=== PATIENT | female | born 1985 | race Caucasian/White ===

== ENCOUNTER → 2018-06-25 16:21 | Outpatient (CLI) | payer MEDICAID, SELFPAY | PROVIDERS: Family Provider Family Medicine; PCP Family Medicine; Visit Provider Otolaryngology Otolaryngology/Facial Plastic Surgery | DX: J32.9 Chronic sinusitis, unspecified (principal) | CPT/HCPCS: 87070; 87077; 87186; 87205 ==

== ENCOUNTER 2019-02-18 13:29 | Outpatient (CLI) | payer MEDICAID, SELFPAY ==
[2019-02-18 14:03] LABS: Protein:Creat Ratio 219 mg/g CRE (0-200)
[2019-02-18 14:15] VITALS: BMI 35.4
[2019-02-18 14:26] LABS: Hematocrit 34.9 % (37-47); Hemoglobin 11.4 g/dl (12.0-15.0); Mean Corp Hgb Conc 32.7 g/gl (32-36); Mean Corpuscular Hgb 29.7 pg (27.0-32.0); Mean Corpuscular Volume 90.9 fL (81-99); Mean Platelet Vol. 10.2 fl (6.2-12.0); Platelet Count 249 K/mm3 (150-450); RBC Distribution Width CV 12.1 % (11.6-14.6); RBC Distribution Width SD 39.2 fl (35.1-43.9); Red Blood Count 3.84 M/mm3 (4.2-5.4); White Blood Count 11.2 K/mm3 (4.4-11.0)
[2019-02-18 14:27] LABS: Scan Indicated on CBC? Y/N NO
[2019-02-18] MEDS: Betamethasone/Betamethasone 30 MG/5 ML Vial 12 MG IM (14:42)
[2019-02-18 14:48] LABS: AST(SGOT) 17 U/L (15-37); Alanine Aminotransfer ALT/SGPT 14 U/L (13-56); Creatinine, Serum 0.52 mg/dL (0.55-1.02); EST Glomerular Filtration Rate 146 mL/min (>60); Est Glom Filt Rate - Afr Amer 177 mL/min (>60); Estimated Creatinine Clearance 123.98 ml/min; Uric Acid 4.5 mg/dL (2.6-6.0)
[2019-02-18 15:11] VITALS: BP 132/80; PULSE 85; RESP 16; TEMP 36.7; O2SAT 98
[2019-02-19 17:05] LABS: 24HR. UA Prot. Total Volume 2775 mL; 24HR. Urine Creatinine 1.61 g/24 HR (0.70-1.90); Urine Protein (24 Hour) 11.1 mg/dL (<11.9)
[2019-02-19 17:06] LABS: Creat.Clear Total Volume 2775 mL; Creatinine Clearance 212 ml/min (100-200); Creatinine Serum Creat 0.5 mg/dL (0.6-1.0); Creatinine Urine 57.3 mg/dL (NO RANGE EST.); EST Glomerular Filtration Rate 145 mL/min (>60); Est Glom Filt Rate - Afr Amer 176 mL/min (>60)
--- NOTE | 2019-02-25 17:31 | OB.TRI.NOTE ---
History of Present Illness Date of Service: 02/18/19 Reason For Visit: R/O PIH Date of Service: 02/18/19 Final IDANIA: 03/23/19 Gestational age: 35 Weeks and 2 Days Allergies propoxyphene napsylate [From Darvocet-N 100] Allergy (Severe, Verified 02/22/19 13:19) Other blisters under skin cefuroxime axetil [From Ceftin] Allergy (Verified 02/22/19 13:19) Hives guevara flavor Allergy (Verified 02/22/19 13:19) Swelling codeine Allergy (Verified 02/22/19 13:19) Hives latex Allergy (Verified 02/22/19 13:19) Rash Sulfa (Sulfonamide Antibiotics) Adverse Reaction (Verified 02/22/19 13:20) Anaphylaxis - Pertinent Past Medical History Medical History: Past Medical History (Last Updated 02/19/19 @ 12:55 by Shannan Leal DO) AVM (arteriovenous malformation) Depression with anxiety History of gestational diabetes mellitus (GDM) History of pre-eclampsia in prior , currently OCD (obsessive compulsive disorder) Rheumatoid arthritis Surgical History: Past Surgical History (Last Updated 02/19/19 @ 12:55 by Shannan Leal DO) History of delivery Laboratory Studies: Laboratory Tests 02/19/19 02/19/19 02/19/19 Range/Units Unknown Unknown Unknown WBC (4.4-11.0) K/mm3 RBC (4.2-5.4) M/mm3 Hgb (12.0-15.0) g/dl Hct (37-47) % MCV (81-99) fL MCH (27.0-32.0) pg MCHC (32-36) g/gl RDW (11.6-14.6) % RDW Differential (35.1-43.9) fl Plt Count (150-450) K/mm3 MPV (6.2-12.0) fl PT (11.7-14.9) SECONDS INR APTT (24.1-36.2) Seconds Creatinine 0.5 L (0.55-1.02) mg/dL Estim Creat Clear Calc ml/min Est GFR (MDRD) Af Amer 176 (>60) mL/min Est GFR (MDRD) Non-Af 145 (>60) mL/min Uric Acid (2.6-6.0) mg/dL AST (15-37) U/L ALT (13-56) U/L U Random Total Protein (<11.9) mg/dL Urine Collection Time 24.0 24.0 (24.0) HOURS Ur Collection Duration 24.0 (24.0) HOURS Urine Total Volume 2.80 L Timed Urine Volume 2775 2775 mL Urine Creatinine 57.90 57.3 (NO RANGE EST.) mg/dL Ur Creatinine 24 Hour 1.61 (0.70-1.90) g/24 HR Creatinine Clearance 212 H (100-200) ml/min Ur Total Protein 24 Hr 308.0 H (<150 MG/24HR) mg/24HR Protein/Creatinin Ratio (0-200) mg/g CRE Urine Total Protein 11.1 (<11.9) mg/dL 02/18/19 02/18/19 02/18/19 Range/Units 14:10 14:10 14:10 WBC 11.2 H (4.4-11.0) K/mm3 RBC 3.84 L (4.2-5.4) M/mm3 Hgb 11.4 L (12.0-15.0) g/dl Hct 34.9 L (37-47) % MCV 90.9 (81-99) fL MCH 29.7 (27.0-32.0) pg MCHC 32.7 (32-36) g/gl RDW 12.1 (11.6-14.6) % RDW Differential 39.2 (35.1-43.9) fl Plt Count 249 (150-450) K/mm3 MPV 10.2 (6.2-12.0) fl PT 13.0 (11.7-14.9) SECONDS INR 1.0 APTT 26.0 (24.1-36.2) Seconds Creatinine 0.52 L (0.55-1.02) mg/dL Estim Creat Clear Calc 123.98 ml/min Est GFR (MDRD) Af Amer 177 (>60) mL/min Est GFR (MDRD) Non-Af 146 (>60) mL/min Uric Acid 4.5 (2.6-6.0) mg/dL AST 17 (15-37) U/L ALT 14 (13-56) U/L U Random Total Protein (<11.9) mg/dL Urine Collection Time (24.0) HOURS Ur Collection Duration (24.0) HOURS Urine Total Volume L Timed Urine Volume mL Urine Creatinine (NO RANGE EST.) mg/dL Ur Creatinine 24 Hour (0.70-1.90) g/24 HR Creatinine Clearance (100-200) ml/min Ur Total Protein 24 Hr (<150 MG/24HR) mg/24HR Protein/Creatinin Ratio (0-200) mg/g CRE Urine Total Protein (<11.9) mg/dL 02/18/19 Range/Units 13:40 WBC (4.4-11.0) K/mm3 RBC (4.2-5.4) M/mm3 Hgb (12.0-15.0) g/dl Hct (37-47) % MCV (81-99) fL MCH (27.0-32.0) pg MCHC (32-36) g/gl RDW (11.6-14.6) % RDW Differential (35.1-43.9) fl Plt Count (150-450) K/mm3 MPV (6.2-12.0) fl PT (11.7-14.9) SECONDS INR APTT (24.1-36.2) Seconds Creatinine (0.55-1.02) mg/dL Estim Creat Clear Calc ml/min Est GFR (MDRD) Af Amer (>60) mL/min Est GFR (MDRD) Non-Af (>60) mL/min Uric Acid (2.6-6.0) mg/dL AST (15-37) U/L ALT (13-56) U/L U Random Total Protein 25.0 H (<11.9) mg/dL Urine Collection Time (24.0) HOURS Ur Collection Duration (24.0) HOURS Urine Total Volume L Timed Urine Volume mL Urine Creatinine 114.00 (NO RANGE EST.) mg/dL Ur Creatinine 24 Hour (0.70-1.90) g/24 HR Creatinine Clearance (100-200) ml/min Ur Total Protein 24 Hr (<150 MG/24HR) mg/24HR Protein/Creatinin Ratio 219 H (0-200) mg/g CRE Urine Total Protein (<11.9) mg/dL Physical Exam Vitals: Vital Signs Temp Pulse Resp BP Pulse Ox 98.1 F 85 16 132/80 H 98 02/18/19 15:11 02/18/19 15:11 02/18/19 15:11 02/18/19 15:11 02/18/19 15:11 NST - FHR Rate Baby A Baseline: 125 Variability:: Moderate Accelerations:: 15 x 15 Decelerations:: Variable NST Reactive:: Yes Uterine Activity:: irritability Impression/Plan Reactive NST for gestational hypertension
== END 2019-02-18 15:15 | disposition home or self-care (01) ==
LOC: WPOUT 13:31 → OBT 13:32
PROVIDERS: Family Provider Family Medicine; PCP Family Medicine; Referring Provider Obstetrics & Gynecology; Visit Provider Obstetrics & Gynecology
DX: O13.3 Gestational [pregnancy-induced] hypertension without significant proteinuria, third trimester (principal); M06.9 Rheumatoid arthritis, unspecified; F60.5 Obsessive-compulsive personality disorder; Z86.32 Personal history of gestational diabetes; Z3A.35 35 weeks gestation of pregnancy
CPT/HCPCS: 59025; 59050; 82565; 82570; 82575; 84156; 84450; 84460; 84550; 85027; 85610; 85730; 99218; G0378; J0702

== ENCOUNTER 2019-02-19 09:00 | Outpatient (CLI) | payer MEDICAID, SELFPAY ==
[2019-02-18 14:15] VITALS: BMI 35.4
[2019-02-19 09:38] VITALS: BMI 37.5
[2019-02-19] MEDS: Acetaminophen 500 MG Tablet 1000 MG PO (10:22)
--- NOTE | 2019-02-19 12:56 | OB.TRI.HP_ITS ---
- Problem List (1) Elevated blood pressure affecting , antepartum Status: Acute (2) Headache in , antepartum Status: Acute History of Present Illness Date of Service: 02/19/19 Was patient seen by the physician?: Yes Reason For Visit: INCREASED BLOOD PRESSURE Date of Service: 02/19/19 Final IDANIA: 03/23/19 Gestational age: 35 Weeks and 3 Days History of Present Illness: Pt presents to L&D after having several mild range BP's at home: 150's/80's. She said she has had an off-and-on FORREST in the over the last several weeks. Had a frontal FORREST that is improved with Tylenol, and now dull and 2/10. No vision changes, RUQ pain, epigastric pain. She has been having nausea and vomiting throughout the , and no new or worsened N/V. Denies ctx, vb, lof. Good FM. Allergies propoxyphene napsylate [From Darvocet-N 100] Allergy (Severe, Verified 02/18/19 14:21) Other blisters under skin cefuroxime axetil [From Ceftin] Allergy (Verified 02/18/19 14:21) Hives guevara flavor Allergy (Verified 02/18/19 14:21) Swelling codeine Allergy (Verified 02/18/19 14:21) Hives latex Allergy (Verified 02/18/19 14:21) Rash - Pertinent Past Medical History Medical History: Past Medical History (Last Updated 02/19/19 @ 12:55 by Shannan Leal DO) AVM (arteriovenous malformation) Depression with anxiety History of gestational diabetes mellitus (GDM) History of pre-eclampsia in prior , currently OCD (obsessive compulsive disorder) Rheumatoid arthritis Surgical History: Past Surgical History (Last Updated 02/19/19 @ 12:55 by Shannan Leal DO) History of delivery Review of Systems Eyes: Denies: Blurred vision, Double vision, Vision Change HEENT: Reports: Head Aches Gastrointestinal: Denies: Abdominal Pain Physical Exam General: Alert, No apparent distress HEENT: Atraumatic Lungs: - - No increased resp effort Abdomen: Soft, Non Tender, Gravid Extremities:: No edema Neurological: Deep Tendon Reflexes 2+/4 and Symmetrical NST - FHR Rate Baby A Baseline: 130 Variability:: Moderate Accelerations:: 15 x 15 Decelerations:: None NST Reactive:: Yes Uterine Activity:: Irritability Impression/Plan 33 y/o at 35 wk gestation who presents from home after checking her BP and having several mild range BP's. She was evaluated yesterday for pre- eclampsia and had pre-e labs that were WNL. She was given 1 dose of BMZ and started a 24 hr urine protein collection. She was to come in today for a BP check and her second dose of BMZ. She reports she came to L&D after having several BP's in 150's/80's. She has had FORREST's off-and-on in the for several weeks, FORREST today that improved with Tylenol but did not completely resolve. No vision changes, RUQ pain, epigastric pain. Has had N/V throughout the . BP initially here was mild range - serial BP's over a few hours have all been normal. Will give 2nd dose of BMZ and have pt turn in 24 hr urine protein. Okay to go home. Will discuss pt with Dr. Escudero, and discuss having pt follow up in the office in 1-2 days. Discussed signs and symptoms of pre-e and when to call. Reviewed possibility of early delivery, and pt has her bags packed and everything ready at home for baby.
[2019-02-19] MEDS: Betamethasone/Betamethasone 30 MG/5 ML Vial 12 MG IM (13:55)
== END 2019-02-19 14:10 | disposition home or self-care (01) ==
LOC: WPOUT 09:04 → WP 09:05
PROVIDERS: Family Provider Family Medicine; PCP Family Medicine; Referring Provider Obstetrics & Gynecology; Visit Provider Obstetrics & Gynecology
DX: O26.893 Other specified pregnancy related conditions, third trimester (principal); R03.0 Elevated blood-pressure reading, without diagnosis of hypertension; R51 Headache; O21.2 Late vomiting of pregnancy; O99.343 Other mental disorders complicating pregnancy, third trimester; F60.5 Obsessive-compulsive personality disorder; F32.9 Major depressive disorder, single episode, unspecified; F41.9 Anxiety disorder, unspecified; Z86.32 Personal history of gestational diabetes; Z79.82 Long term (current) use of aspirin; Z79.899 Other long term (current) drug therapy; Z3A.35 35 weeks gestation of pregnancy
CPT/HCPCS: 59025; 59050; 96372; 99218; G0378; J0702

== ENCOUNTER → 2019-02-19 15:09 | Outpatient (CLI) | payer MEDICAID, SELFPAY ==
[2019-02-19 09:38] VITALS: BMI 37.5
== END ==
PROVIDERS: Family Provider Family Medicine; PCP Family Medicine; Referring Provider Obstetrics & Gynecology; Visit Provider Obstetrics & Gynecology
DX: Z00.00 Encounter for general adult medical examination without abnormal findings (principal)

== ENCOUNTER 2019-02-22 12:35 | Outpatient (CLI) | payer MEDICAID, SELFPAY ==
[2019-02-22 13:42] VITALS: BMI 35.4
[2019-02-22 14:07] LABS: Hematocrit 33.2 % (37-47); Hemoglobin 11.1 g/dl (12.0-15.0); Mean Corp Hgb Conc 33.4 g/gl (32-36); Mean Corpuscular Hgb 30.4 pg (27.0-32.0); Platelet Count 248 K/mm3 (150-450); RBC Distribution Width CV 12.5 % (11.6-14.6); RBC Distribution Width SD 41.3 fl (35.1-43.9); Red Blood Count 3.65 M/mm3 (4.2-5.4); White Blood Count 13.9 K/mm3 (4.4-11.0)
[2019-02-22 14:09] LABS: Scan Indicated on CBC? Y/N NO
[2019-02-22 14:14] LABS: Protein, Urine (Random) 10.3 mg/dL (<11.9); Protein:Creat Ratio 205 mg/g CRE (0-200)
[2019-02-22 14:16] LABS: Partial Thromboplast Time 24.2 Seconds (24.1-36.2)
[2019-02-22 14:17] LABS: AST(SGOT) 15 U/L (15-37); Alanine Aminotransfer ALT/SGPT 15 U/L (13-56); Creatinine, Serum 0.46 mg/dL (0.55-1.02); EST Glomerular Filtration Rate 166 mL/min (>60); Est Glom Filt Rate - Afr Amer 201 mL/min (>60); Estimated Creatinine Clearance 140.15 ml/min; Uric Acid 4.3 mg/dL (2.6-6.0)
--- NOTE | 2019-02-23 08:22 | OB.TRI.NOTE ---
History of Present Illness Date of Service: 02/22/19 Was patient seen by the physician?: No Reason For Visit: RULE OUT PRE E Date of Service: 02/22/19 Final IDANIA: 03/23/19 Final IDANIA Source: LMP Gestational age: 36 Weeks and 0 Days History of Present Illness: 33yo @ 35.6 wks elevated BP at home- here for PRE E work up. has h/o PRE E- planned cs on 03/04/19. Allergies propoxyphene napsylate [From Darvocet-N 100] Allergy (Severe, Verified 02/22/19 13:19) Other blisters under skin cefuroxime axetil [From Ceftin] Allergy (Verified 02/22/19 13:19) Hives guevara flavor Allergy (Verified 02/22/19:19) Swelling codeine Allergy (Verified 02/22/19 13:19) Hives latex Allergy (Verified 02/22/19 13:19) Rash Sulfa (Sulfonamide Antibiotics) Adverse Reaction (Verified 02/22/19 13:20) Anaphylaxis - Pertinent Past Medical History Medical History: Past Medical History (Last Updated 02/19/19 @ 12:55 by Shannan Leal DO) AVM (arteriovenous malformation) Depression with anxiety History of gestational diabetes mellitus (GDM) History of pre-eclampsia in prior , currently OCD (obsessive compulsive disorder) Rheumatoid arthritis Surgical History: Past Surgical History (Last Updated 02/19/19 @ 12:55 by Shannan Leal DO) History of delivery Laboratory Studies: Laboratory Tests 02/22/19 02/22/19 02/22/19 Range/Units 13:50 13:50 13:50 WBC (4.4-11.0) K/mm3 RBC (4.2-5.4) M/mm3 Hgb (12.0-15.0) g/dl Hct (37-47) % MCV (81-99) fL MCH (27.0-32.0) pg MCHC (32-36) g/gl RDW (11.6-14.6) % RDW Differential (35.1-43.9) fl Plt Count (150-450) K/mm3 MPV (6.2-12.0) fl PT 13.0 (11.7-14.9) SECONDS INR 1.0 APTT 24.2 (24.1-36.2) Seconds Creatinine 0.46 L (0.55-1.02) mg/dL Estim Creat Clear Calc 140.15 ml/min Est GFR (MDRD) Af Amer 201 (>60) mL/min Est GFR (MDRD) Non-Af 166 (>60) mL/min Uric Acid 4.3 (2.6-6.0) mg/dL AST 15 (15-37) U/L ALT 15 (13-56) U/L U Random Total Protein 10.3 (<11.9) mg/dL Urine Creatinine 50.30 (NO RANGE EST.) mg/dL Protein/Creatinin Ratio 205 H (0-200) mg/g CRE 02/22/19 Range/Units 13:50 WBC 13.9 H (4.4-11.0) K/mm3 RBC 3.65 L (4.2-5.4) M/mm3 Hgb 11.1 L (12.0-15.0) g/dl Hct 33.2 L (37-47) % MCV 91.0 (81-99) fL MCH 30.4 (27.0-32.0) pg MCHC 33.4 (32-36) g/gl RDW 12.5 (11.6-14.6) % RDW Differential 41.3 (35.1-43.9) fl Plt Count 248 (150-450) K/mm3 MPV 10.0 (6.2-12.0) fl PT (11.7-14.9) SECONDS INR APTT (24.1-36.2) Seconds Creatinine (0.55-1.02) mg/dL Estim Creat Clear Calc ml/min Est GFR (MDRD) Af Amer (>60) mL/min Est GFR (MDRD) Non-Af (>60) mL/min Uric Acid (2.6-6.0) mg/dL AST (15-37) U/L ALT (13-56) U/L U Random Total Protein (<11.9) mg/dL Urine Creatinine (NO RANGE EST.) mg/dL Protein/Creatinin Ratio (0-200) mg/g CRE NST - FHR Rate Baby A Baseline: 140 Variability:: Moderate Accelerations:: 15 x 15 Decelerations:: None NST Reactive:: Yes FHR Category:: Category I Uterine Activity:: none Impression/Plan 33yo @ 35.6 wks- Elevated BP at home 1) PRE E labs wnl 2) BPs normal range 3) RUQ discomfort - according to nursing no rebound, no guarding- non tender on deep palpation- Per nursing reflexes normal 4) Dc home with follow up this week with Dr. Escudero.
== END 2019-02-22 14:50 | disposition home or self-care (01) ==
LOC: WPOUT 12:44 → WP 13:33
PROVIDERS: Family Provider Family Medicine; PCP Family Medicine; Referring Provider Obstetrics & Gynecology; Visit Provider Obstetrics & Gynecology
DX: O14.03 Mild to moderate pre-eclampsia, third trimester (principal); Z79.82 Long term (current) use of aspirin; Z79.899 Other long term (current) drug therapy; Z86.32 Personal history of gestational diabetes; Z3A.36 36 weeks gestation of pregnancy
CPT/HCPCS: 59050; 82565; 82570; 84156; 84450; 84460; 84550; 85027; 85610; 85730; 99218; G0378

== ENCOUNTER 2019-03-04 10:00 | Inpatient (IN) | payer MEDICAID, SELFPAY ==
[2019-03-04] VITALS (22 sets, daily range): BP systolic 126–148; BP diastolic 67–104; PULSE 93–120; RESP 14–20; TEMP 36.2–36.9; O2SAT 97–100; BMI 35.4
--- NOTE | 2019-03-04 | FALS_PTH ---
PATIENT: AMRITA MICHAUD LOC: [facility] U#:[id number] AGE/SX: 33/F ROOM: WP004 RE03/04/[address]: Dr. Devin Escudero MD : [id number] BED: 1 DIS: 03/06/2019 SPEC #: [id number] RECD: 03/04/19 14:22 STATUS: VERA REGui #: [id number] UBALDO: 03/04/19 00:[address]: Devin Escudero DEPT: SURGICAL PATHOLOGY RECD BY: Amanda Mahoney ENTERED: 03/04/19 14:23 SP TYPE: FALL TUBES OTHR DR: Dr. Tao Patel MD Tissues: Fallopian tube Procedures: Surgery Specimen Level II HEADER OPERATION: Tubal ligation PRE-OP DIAGNOSIS: Tubal ligation TISSUE SUBMITTED: Fallopian tube MICROSCOPIC DIAGNOSIS Bilateral fallopian tubes, tubal ligation: Completely transected segments of bilateral fallopian tubes, no pathologic diagnosis. SJ:basil 03/05/19 MICROSCOPIC DESCRIPTION Slides are reviewed. GROSS DESCRIPTION Received is one container labeled with the patient's name and designated bilateral fallopian tubes, right with suture. The specimen consists of two tubular pieces of pink-carr soft tissue with the right identified with a suture. The right fallopian tube measures 1.5 cm in length and 0.5 cm in diameter and it is inked black. The left fallopian tube measures 0.7 cm in length and 0.5 cm in diameter. The entire specimen is submitted in one cassette. / MISTI:basil 03/04/19 TC:4 CPT: 72634 x2
[2019-03-04 10:42] LABS: Absolute Lymphocyte Count 2.11 X10^3/ul (0.83-4.51); Basophil# 0.02 X10^3/uL; Basophil% 0.2 % (0-1); Eosinophil# 0.38 X10^3/uL; Eosinophils% 3.6 % (0-5); Hematocrit 34.4 % (37-47); Hemoglobin 11.5 g/dl (12.0-15.0); Lymphocyte # 2.11 X10^3/ul (4.0); Mean Corp Hgb Conc 33.4 g/gl (32-36); Mean Corpuscular Hgb 30.2 pg (27.0-32.0); Mean Corpuscular Volume 90.3 fL (81-99); Mean Platelet Vol. 10.2 fl (6.2-12.0); Monocyte# 1.02 X10^3/uL; Monocyte% 9.7 % (0-10); Neutrophil # 7.02 X10^3/uL (2.7-7.7); Neutrophil % 66.4 % (47-70); Platelet Count 245 K/mm3 (150-450); RBC Distribution Width CV 12.6 % (11.6-14.6); RBC Distribution Width SD 41.2 fl (35.1-43.9); Red Blood Count 3.81 M/mm3 (4.2-5.4); White Blood Count 10.6 K/mm3 (4.4-11.0)
[2019-03-04 10:46] LABS: POSITIVE COUNT NO; POSITIVE DIFFERENTIAL NO; POSITIVE MORPHOLOGY NO
[2019-03-04] MEDS: Sodium Citrate/Citric Acid 30 ML UDC PO (11:45)
--- NOTE | 2019-03-04 11:59 | PCM.HP.OB ---
History Date of Admission: 03/04/19 Final IDANIA: 03/23/19 Final IDANIA Source: LMP Gestational age: 37 Weeks and 2 Days History of this : This is a 33 year-old, G [], P [], at 37 weeks gestational age. Medical History: Medical History (Last Updated 02/19/19 @ 12:55 by Shannan Leal DO) AVM (arteriovenous malformation) Q27.30 Depression with anxiety F41.8 History of gestational diabetes mellitus (GDM) Z86.32 History of pre-eclampsia in prior , currently O09.299 OCD (obsessive compulsive disorder) F42.9 Rheumatoid arthritis M06.9 Surgical History: Surgical History (Last Updated 02/19/19 @ 12:55 by Shannan Leal DO) History of delivery Z98.891 Allergies propoxyphene napsylate [From Darvocet-N 100] Allergy (Severe, Verified 03/04/19 10:14) Other blisters under skin cefuroxime axetil [From Ceftin] Allergy (Verified 03/04/19 10:14) Hives guevara flavor Allergy (Verified 03/04/19 10:14) Swelling codeine Allergy (Verified 03/04/19 10:14) Hives latex Allergy (Verified 03/04/19 10:14) Rash Sulfa (Sulfonamide Antibiotics) Adverse Reaction (Verified 03/04/19 10:14) Anaphylaxis Home Medications: Home Medications Vits [Prenatabs FA ] 1 tablet PO DAILY 12/05/13 Aspirin [Aspirin, Baby] 81 mg PO DAILY@0800 02/18/19 Citalopram [Celexa] 40 mg PO DAILY 02/18/19 Ferrous Gluconate 324 mg PO BID 02/18/19 Ondansetron HCl [Zofran] 4 mg PO DAILY 02/18/19 Smoking Status: Never smoker History Past Pregnancies: Past Pregnancies Delivery Date Name GA/Weeks Outcome Route Weight Gender Labor Length Anesthesia Delivery Location Provider FOB Labs: See [facility] H&P Physical Exam General: Alert, Oriented x3 Cardiovascular: Regular rate, Regular Rhythm Lungs: Normal air movement Abdomen: Soft, Non Tender, Non-Distended, Gravid Neurological: Cranial nerves II-XII grossly intact JUNIOR JAVA DEVELOPER: Normal external genitalia Estimated gestational size: Appropriate for gestational size Presentation: Cephalic Assessment/Plan All Active Problems (Last Updated 02/19/19 @ 12:55 by Shannan Leal DO) Elevated blood pressure affecting , antepartum (Acute) Headache in , antepartum (Acute) This is a 33 year-old female at 37&2 weeks gestational age. Admit to L&D Mild preeclampsia - no magnesium unless patient has severe range blood pressures or other features c/w severe preE MOD - repeat at 37&2 for mild preeclampsia Sterilization request - plan for bilateral tubal ligation, patient aware of risks of failure & regret Routine care
[2019-03-04] MEDS: Oxytocin 30 units/NS 500 ml 30 UNITS/500 ML IV.SOLN 167 UNITS IV (12:25)
[2019-03-04] MEDS: Ketorolac 30 MG/ML Syringe IV ×2 (12:35→18:25)
[2019-03-04] MEDS: Lactated Ringers 1,000 ML 100 ML IV (13:00)
--- NOTE | 2019-03-04 13:10 | PCM.OPRPT ---
Report of Operation Date of Procedure: 03/04/19 Pre-Operative Diagnosis: (1) Mild preeclampsia (2) Prior (3) Sterilization request Post-Operative Diagnosis: Same Surgery/Procedure Performed:: Low transverse section with bilateral tubal ligation Description of Surgical Findings:: Normal uterus & adnexa surgery manager: Yordan Jensen Specimen's removed: placenta Drains: fang Estimated Blood Loss (mL): 700ml Delivery Classification: Scheduled Final IDANIA: 03/23/19 Gestational age: 37 Weeks and 2 Days Indications for : Repeat Elective , Desires elective sterilization Description of Procedure: Patient taken to OR where she was prepped and draped in normal sterile fashion in a dorsal lithotomy position with a leftward tilt. After ensuring adequacy of anesthesia the Pfannensteil skin incision was made and carried through to the underlying fascia w/ a bovie. The fascia was incised in the midline and carried laterally with the Jon scissors. The rectus muscles were in the midline and the peritoneum was entered sharply. The bladder flap was dissected down with the Metzenbaum scissors and blunt dissection. The uterine incision was made with the scalpel and extended laterally w/ blunt dissection. The fetus was vertex and the head was brought to the incision in the flexed position. With good fundal pressure the head delivered easily. Shoulders & body delivered easily. The 3VC was clamped and cut after 1 minute delay and the handed off to waiting RN. The placenta was delivered w/ gentle traction and fundal massage and the uterus was exteriorized and cleared of all clots and debris. The uterine incision was closed with 1 vicryl suture in a running locked fashion. The right fallopian tube was then grasped, doubly suture ligated & tubal segment excised. This was repeated on the left fallopian tube. Excellent hemostasis of the tubal sites was confirmed. The uterus was returned to the peritoneal cavity. Pelvis was irrigated and cleared of all clots & debris. The uterine incision was reexamined and found to be hemostatic. The bladder peritoneum was also hemostatic. Some juliet was placed over the uterine incision due to the denuded areas. The tubal sutures were confirmed intact and hemostasis again confirmed. The fascia was closed with looped PDS suture in a running standard fashion. The subcutaneous tissue was examined, any bleeding bovie cauterized. The subcutaneous tissue was reapproximated with plain gut suture. The skin was closed in a subcuticular fashion by the CORE FILER with me present in the labor and delivery suite. I performed the remainder of the procedure w/ assistance. Amniotic Membrane Rupture Type: Artificial Amniotic Fluid Description: Clear Placenta Disposition: [facility] Drain: Fang to straight drain Fluids Replaced: 1500ml Cord Entanglement: None Cord Vessel Description: 3 Vessels Esitmated Blood Loss (ml): 700ml Infant Gender: Female (1 minute): 8 (5 minute): 9 Delayed cord clamping: Yes Pre-op Antibiotic Given: Clindamycin 600mg IV x1 and Gentamicin 1.5mg/kg IV x1
--- NOTE | 2019-03-04 13:14 | OP.PCM_ITS ---
Report of Operation Date of Procedure: 03/04/19 Pre-Operative Diagnosis: (1) Mild preeclampsia (2) Prior (3) Jamshid rilization request Post-Operative Diagnosis: Same Surgery/Procedure Performed:: Low transverse section with bilateral tubal ligation Description of Surgical Findings:: Normal uterus & adnexa assembly loader: Yordan Jensen Specimen's removed: placenta Drains: fang Estimated Blood Loss (mL): 700ml Delivery Classification: Scheduled Final IDANIA: 03/23/19 Gestational age: 37 Weeks and 2 Days Indications for : Repeat Elective , Desires elective sterilization Description of Procedure: Patient taken to OR where she was prepped and draped in normal sterile fashion in a dorsal lithotomy position with a leftward tilt. After ensuring adequacy of anesthesia the Pfannensteil skin incision was made and carried through to the underlying fascia w/ a bovie. The fascia was incised in the midline and carried laterally with the Jon scissors. The rectus muscles were in the midline and the peritoneum was entered sharply. The bladder flap was dissected down with the Metzenbaum scissors and blunt dissection. The uterine incision was made with the scalpel and extended laterally w/ blunt dissection. The fetus was vertex and the head was brought to the incision in the flexed position. With good fundal pressure the head delivered easily. Shoulders & body delivered easily. The 3VC was clamped and cut after 1 minute delay and the handed off to waiting RN. The placenta was delivered w/ gentle traction and fundal massage and the uterus was exteriorized and cleared of all clots and debris. The uterine incision was closed with 1 vicryl suture in a running locked fashion. The right fallopian tube was then grasped, doubly suture ligated & tubal segment excised. This was repeated on the left fallopian tube. Excellent hemostasis of the tubal sites was confirmed. The uterus was returned to the peritoneal cavity. Pelvis was irrigated and cleared of all clots & debris. The uterine incision was reexamined and found to be hemostatic. The bladder peritoneum was also hemostatic. Some juliet was placed over the uterine incision due to the denuded areas. The tubal sutures were confirmed intact and hemostasis again confirmed. The fascia was closed with looped PDS suture in a running standard fashion. The subcutaneous tissue was examined, any bleeding bovie cauterized. The subcutaneous tissue was reapproximated with plain gut suture. The skin was closed in a subcuticular fashion by the SHIPPING TECHNICIAN with me present in the labor and delivery suite. I performed the remainder of the procedure w/ assistance. Amniotic Membrane Rupture Type: Artificial Amniotic Fluid Description: Clear Placenta Disposition: [facility] Drain: Fang to straight drain Fluids Replaced: 1500ml Cord Entanglement: None Cord Vessel Description: 3 Vessels Esitmated Blood Loss (ml): 700ml Gender: Female (1 minute): 8 (5 minute): 9 Delayed cord clamping: Yes Pre-op Antibiotic Given: Clindamycin 600mg IV x1 and Gentamicin 1.5mg/kg IV x1
[2019-03-04 13:52] LABS: Pathology Specimen OB SEE PATHOLOGY REPORT
[2019-03-04 17:42] LABS: Protein, Urine (Random) 23.5 mg/dL (<11.9); Protein:Creat Ratio 1193 mg/g CRE (0-200)
[2019-03-04 17:44] LABS: Hematocrit 29.9 % (37-47); Mean Corp Hgb Conc 33.4 g/gl (32-36); Mean Corpuscular Hgb 30.3 pg (27.0-32.0); Mean Corpuscular Volume 90.6 fL (81-99); Mean Platelet Vol. 10.2 fl (6.2-12.0); Platelet Count 232 K/mm3 (150-450); RBC Distribution Width CV 12.5 % (11.6-14.6); RBC Distribution Width SD 41.1 fl (35.1-43.9); Scan Indicated on CBC? Y/N NO; White Blood Count 15.4 K/mm3 (4.4-11.0)
[2019-03-04 17:49] LABS: Prothrombin Time (Protime)PT. 13.4 SECONDS (11.7-14.9)
[2019-03-04 17:50] LABS: Partial Thromboplast Time 26.9 Seconds (24.1-36.2)
[2019-03-04 18:15] LABS: AST(SGOT) 26 U/L (15-37); Alanine Aminotransfer ALT/SGPT 27 U/L (13-56); Creatinine, Serum 0.41 mg/dL (0.55-1.02); EST Glomerular Filtration Rate 193 mL/min (>60); Est Glom Filt Rate - Afr Amer 233 mL/min (>60); Estimated Creatinine Clearance 157.24 ml/min; Uric Acid 4.7 mg/dL (2.6-6.0)
[2019-03-04] MEDS: Nalbuphine 10 MG/ML Ampul 5 MG IV (18:26)
[2019-03-04] MEDS: DiphenhydrAMINE 25 MG Capsule PO (23:14)
[2019-03-04] MEDS: Ibuprofen 600 MG Tablet PO (23:25)
[2019-03-05] VITALS (13 sets, daily range): BP systolic 121–135; BP diastolic 65–76; PULSE 78–98; RESP 16–18; TEMP 36.1–36.7; O2SAT 97–99
--- NOTE | 2019-03-05 01:04 | NURSING ---
Late entry: 0045 pad changed and thomas care done. Pt up and sat on side of bed, dangling legs. Pt then stood at bedside, then back into bed. Pt tolerated this activity well.
[2019-03-05 04:34] LABS: Hematocrit 28.5 % (37-47); Hemoglobin 9.6 g/dl (12.0-15.0); Mean Corp Hgb Conc 33.7 g/gl (32-36); Mean Corpuscular Hgb 30.7 pg (27.0-32.0); Mean Corpuscular Volume 91.1 fL (81-99); Platelet Count 203 K/mm3 (150-450); RBC Distribution Width CV 12.7 % (11.6-14.6); RBC Distribution Width SD 41.8 fl (35.1-43.9); Red Blood Count 3.13 M/mm3 (4.2-5.4); Scan Indicated on CBC? Y/N NO; White Blood Count 13.5 K/mm3 (4.4-11.0)
[2019-03-05] MEDS: DiphenhydrAMINE 25 MG Capsule PO (05:57)
[2019-03-05] MEDS: Ibuprofen 600 MG Tablet PO ×3 (06:00→20:59)
--- NOTE | 2019-03-05 08:51 | PN.OBGYN_ITS ---
Subjective: Pain well controlled, average lochia. No nausea or vomiting. Tolerating regular diet and p.o. fluids. - Physical Exam General: Alert, Cooperative, No apparent distress Abdomen: Soft, Distended - Mildly, softly, Tender - Appropriately Extremities: Edema - 1+, - - 2+ DTRs, no clonus Skin: Incision - Clean dry and intact bandage. Vital Signs Temp Pulse Resp BP Pulse Ox 98.0 F 83 18 121/65 H 97 03/05/19 08:27 03/05/19 08:27 03/05/19 08:27 03/05/19 08:27 03/05/19 08:27 Oxygen Delivery Method Room Air Weight: 87.997 kg Body Mass Index (BMI) 35.4 Intake and Output for Last 24 Hours 03/03/19 03/04/19 03/05/19 23:59 23:59 23:59 Intake Total 1500 / 1500 1978 Output Total 3000 / 3000 2700 / 2700 Balance -1500 / -1500 -721 / -721 Laboratory Tests Past 24 Hrs 03/04/19 03/04/19 03/04/19 10:20 10:20 17:15 WBC 10.6 15.4 H RBC 3.81 L 3.30 L Hgb 11.5 L 10.0 L Hct 34.4 L 29.9 L MCV 90.3 90.6 MCH 30.2 30.3 MCHC 33.4 33.4 RDW 12.6 12.5 RDW Differential 41.2 41.1 Plt Count 245 232 MPV 10.2 10.2 Immature Gran % (Auto) 0.100 Neut % (Auto) 66.4 Lymph % (Auto) 20.0 [place] % (Auto) 9.7 Eos % (Auto) 3.6 Baso % (Auto) 0.2 Absolute Neuts (auto) 7.0 Absolute Lymphs (auto) 2.11 Total Counted Not Reportable PT INR APTT Creatinine Estim Creat Clear Calc Est GFR (MDRD) Af Amer Est GFR (MDRD) Non-Af Uric Acid AST ALT U Random Total Protein Urine Creatinine Protein/Creatinin Ratio Blood Type A POSITIVE Antibody Screen NEGATIVE 03/04/19 03/04/19 03/04/19 17:15 17:15 17:15 WBC RBC Hgb Hct MCV MCH MCHC RDW RDW Differential Plt Count MPV Immature Gran % (Auto) Neut % (Auto) Lymph % (Auto) [place] % (Auto) Eos % (Auto) Baso % (Auto) Absolute Neuts (auto) Absolute Lymphs (auto) Total Counted PT 13.4 INR 1.0 APTT 26.9 Creatinine 0.41 L Estim Creat Clear Calc 157.24 Est GFR (MDRD) Af Amer 233 Est GFR (MDRD) Non-Af 193 Uric Acid 4.7 AST 26 ALT 27 U Random Total Protein 23.5 H Urine Creatinine 19.70 Protein/Creatinin Ratio 1193 H Blood Type Antibody Screen 03/05/19 04:15 WBC 13.5 H RBC 3.13 L Hgb 9.6 L Hct 28.5 L MCV 91.1 MCH 30.7 MCHC 33.7 RDW 12.7 RDW Differential 41.8 Plt Count 203 MPV 10.0 Immature Gran % (Auto) Neut % (Auto) Lymph % (Auto) [place] % (Auto) Eos % (Auto) Baso % (Auto) Absolute Neuts (auto) Absolute Lymphs (auto) Total Counted PT INR APTT Creatinine Estim Creat Clear Calc Est GFR (MDRD) Af Amer Est GFR (MDRD) Non-Af Uric Acid AST ALT U Random Total Protein Urine Creatinine Protein/Creatinin Ratio Blood Type Antibody Screen Medical Necessity - Tobacco Use Smoking Status: Never smoker Assessment/Plan All Active Problems (Last Updated 02/19/19 @ 12:55 by Shannan Leal DO) Elevated blood pressure affecting , antepartum (Acute) Headache in , antepartum (Acute) Postoperative day #1 status post repeat section at 37 weeks gestation with mild preeclampsia. Blood pressures are stable. Hemoglobin shows mild acute blood loss anemia which is appropriate for blood loss during surgery. We will continue to monitor blood pressures. No evidence of severe preeclampsia. DC Sharpe catheter, increase ambulation. is breast-feeding and doing well. Routine care.
--- NOTE | 2019-03-05 15:16 | CASEMGMT ---
Social Work Labor and Delivery Attempted to meet with patient at 1415 and 1500. Patient wanted to feed at 1415 and asked social work to return at 1500. At 1500, patient was working with and asked for social work to return in the morning. -Rissa Silva, HIGH RISK OB Student Devulcanizer Tender.
[2019-03-06 01:45] VITALS: BP 122/73; PULSE 74; RESP 16; TEMP 36.2
[2019-03-06] MEDS: Ibuprofen 600 MG Tablet PO ×2 (05:18→11:32)
[2019-03-06 08:14] VITALS: BP 143/80; PULSE 72; RESP 18; TEMP 36.3; O2SAT 95
[2019-03-06 08:39] VITALS: BP 148/76; PULSE 72; RESP 16; TEMP 36.3; O2SAT 95
--- NOTE | 2019-03-06 09:42 | PCM.PN.OB ---
Subjective: pain well controlled, average lochia. Denies FORREST, visual changes, CP, SOB. + flatus, no BM. roberta. regular diet - Physical Exam General: Alert, Cooperative, No apparent distress Abdomen: Soft, Non-Distended, Tender - appropriately Extremities: Edema - trace, 2+ DTrs, no clonus Skin: Incision - bandage clean, dry and intact Vital Signs Temp Pulse Resp BP Pulse Ox 97.4 F L 72 16 148/76 H 95 03/06/19 08:39 03/06/19 08:39 03/06/19 08:39 03/06/19 08:39 03/06/19 08:39 Oxygen Delivery Method Room Air Weight: 87.997 kg Body Mass Index (BMI) 35.4 Intake and Output for Last 24 Hours 03/04/19 03/05/19 03/06/19 23:59 23:59 23:59 Intake Total 1500 / 1500 1978 Output Total 3000 / 3000 6700 / 6700 500 / 500 Balance -1500 / -1500 -4721 / -4721 -500 / -500 Medical Necessity - Tobacco Use Smoking Status: Never smoker Assessment/Plan All Active Problems (Last Updated 02/19/19 @ 12:55 by Shannan Leal DO) Elevated blood pressure affecting , antepartum (Acute) Headache in , antepartum (Acute) POD#2 s/p repeat c/s doing well bp stable f/u in office in 1 week for BP check or prn declines Rx for narcotics
--- NOTE | 2019-03-06 09:54 | DCINST_ITS ---
Discharge Diet: No Restrictions - remove bandage on 03/09 or 03/10/19 Discharge Activity: Return to Normal Activity, May Not Drive - for 2 weeks, May not drive while taking narcotic pain medications., May Shower, May Take a Tub Bath - in 7 days. May resume sexual activity in: 4-6 weeks Lifting Restrictions: 20 pounds Additional Activity Instructions:: Nothing in the vagina for 4-6 weeks. You may return to work/school in 6 weeks. Call your doctor if your incision/area has: Continuous Slow Oozing, Sudden Increased Bleeding, Increased Pain/ Swelling, Increased Redness, Foul Smelling Discharge Call your doctor if you observe: Fever of 101 or Higher, Using more than one pad per hour - for 2 hours Suture Line Care: Avoid Pulling/Pushing, Avoid Pinching/Bending Cleanse incision/area with: Keep Dressing Clean & Dry Additional Instructions: If you experience any of the following, contact your healthcare provider. * Bleeding that soaks a pad every hour for 2 hours * Fever 100.4 or higher * Unrelieved incision or abdominal pain * Swelling, redness, discharge or bleeding from your incision or episiotomy site * Your incision begins to separate * Problems urinating (including inability to urinate or burning while urinating). * Visual changes * Severe headache * Flu-like symptoms * Pain or redness in one of both of your breasts * Pain, warmth, tenderness or swelling in your legs, especially the calf area * Frequent nausea and vomiting * Symptoms of depression or anxiety If you experience any of the following, call 911 or go to the nearest Emergency Room. * Chest pain * Problems breathing * Seizure activity * Partial or complete paralysis of a body part, slurred speech, weakness or drooping of the face, or a sudden inability to walk or hold your balance Allergies/Adverse Reactions: Allergies propoxyphene napsylate [From Darvocet-N 100] Allergy (Severe, Verified 03/04/19 10:14) Other blisters under skin cefuroxime axetil [From Ceftin] Allergy (Verified 03/04/19 10:14) Hives guevara flavor Allergy (Verified 03/04/19 10:14) Swelling codeine Allergy (Verified 03/04/19 10:14) Hives latex Allergy (Verified 03/04/19 10:14) Rash Sulfa (Sulfonamide Antibiotics) Adverse Reaction (Verified 03/04/19 10:14) Anaphylaxis Medications to take at Discharge Vits [Prenatabs FA ] 1 tablet PO DAILY 12/05/13 Citalopram [Celexa] 40 mg PO DAILY 02/18/19 Ferrous Gluconate 324 mg PO BID 02/18/19 Ibuprofen [Motrin] 600 mg PO Q6H PRN #60 tablet 03/06/19 The following prescriptions were given: Ibuprofen [Motrin] 600 mg PO Q6H PRN #60 tablet PRN Reason: Pain Follow-Up: Call to make an appointment with your doctor for an incision check in 1-2 weeks. You will also need a 6 week post- follow up appointment. Test results from this visit will be discussed in further detail at your follow- up appointment, if applicable. Please Follow Up With: Devin Escudero - Call to make an appointment for an incision check in 1 [phone] When: You will need a post check in 6 weeks. Primary Care Physician: Tao Patel MD [Primary Care Provider] -
--- NOTE | 2019-03-06 09:55 | PCM.DC.SUM ---
Discharge Date and Diagnosis Date of Admission: 03/04/19 Date of Discharge: 03/06/19 Hospital Course and Treatment Operations: - - Repeat low transverse section via Pfannenstiel skin incision with bilateral partial salpingectomy for sterilization Procedures: None Summary of Care Provided: The patient is a 33 year old female was admitted at 37+ weeks gestation for repeat section due to mild preeclampsia. She also went a bilateral partial salpingectomy for sterilization. Procedures performed without difficulty. Her blood pressures are stable after the . She had mild postoperative anemia consistent with blood loss from the surgery. She had no symptoms or laboratory studies consistent with preeclampsia with severe features. By postoperative 2 she is ambling, urinating tolerating regular diet without difficulty. She was discharged home with routine instructions and prescriptions. She declined a narcotic prescription. She is to follow-up in our office in 1-2 in 6 weeks or as needed if any symptoms of preeclampsia. [] - Physical Exam Vital Signs Temp Pulse Resp BP Pulse Ox 97.4 F L 72 16 148/76 H 95 03/06/19 08:39 03/06/19 08:39 03/06/19 08:39 03/06/19 08:39 03/06/19 08:39 Oxygen Delivery Method Room Air Weight: 87.997 kg Body Mass Index (BMI) 35.4 Intake and Output for Last 24 Hours 03/04/19 03/05/19 03/06/19 23:59 23:59 23:59 Intake Total 1500 / 1500 1978 Output Total 3000 / 3000 6700 / 6700 500 / 500 Balance -1500 / -1500 -4721 / -4721 -500 / -500 Discharge Diet: No Restrictions - remove bandage on 03/09 or 03/10/19 Discharge Activity: Return to Normal Activity, May Not Drive - for 2 weeks, May not drive while taking narcotic pain medications., May Shower, May Take a Tub Bath - in 7 days. May resume sexual activity in: 4-6 weeks Additional Activity Instructions:: Nothing in the vagina for 4-6 weeks. You may return to work/school in 6 weeks. Call your doctor if your incision/area has: Continuous Slow Oozing, Sudden Increased Bleeding, Increased Pain/ Swelling, Increased Redness, Foul Smelling Discharge Call your doctor if you observe: Fever of 101 or Higher, Using more than one pad per hour - for 2 hours Suture Line Care: Avoid Pulling/Pushing, Avoid Pinching/Bending Cleanse incision/area with: Keep Dressing Clean & Dry Home Medications: Medications to take at Discharge Vits [Prenatabs FA ] 1 tablet PO DAILY 12/05/13 Citalopram [Celexa] 40 mg PO DAILY 02/18/19 Ferrous Gluconate 324 mg PO BID 02/18/19 Ibuprofen [Motrin] 600 mg PO Q6H PRN #60 tablet 03/06/19 Following Prescrptions Were Given to Patient: Ibuprofen [Motrin] 600 mg PO Q6H PRN #60 tablet PRN Reason: Pain Primary Care Physician: Tao Patel MD [Primary Care Provider] - Please Follow Up With: Devin Escudero - Call to make an appointment for an incision check in 1 [phone] When: You will need a post check in 6 weeks. Medical Necessity - Tobacco Use Smoking Status: Never smoker Meaningful Use Info Meaningful Use Diagnoses (Choose all that apply): None applicable
--- NOTE | 2019-03-06 10:11 | NURSING ---
reviewed student's documentation for completion
--- NOTE | 2019-03-06 11:34 | CASEMGMT ---
Social Work Labor and Delivery Date of Referral: 03/05/19 Time of Referral: 0800 Referred by: Dr Escudero/Dr Grimaldo Date of Intervention: 03/06/19 Time of Intervention: 0900 Reason for referral: mental health, history of anxiety and depression History obtained from: medical record, mother of the baby(MOB) Sharon Ross Household composition: MOB lives with Shane Ross father of the baby (LYDIA) and their 5 year old daughter Marci. MOB declines any safety concerns within the home. Patient's parent guardian status: MOB and FOB have been together since middle school and for 8 years. MOB and FOB do not have any children outside their relationship. MOB denies any history of domestic violence. Medical History: MOB is to 2 after of baby Anh. MOB began PNC at 7 weeks. Anh was born on 03/04/19 at 6lbs and 13oz with scores of 8 and 9. Educational status: MOB reports to have a bachelors degree. MOB confirmed to be able to read, write, and comprehend. Financial Status: MOB works for [employer] that is owned by MOB's parents. FOYasir works for [employer]. Supplies: MOB reports to have car seat, crib, pack and play, clothing, diapers, wipes, and a breast pump. Childcare/givers: MOB and FOB will be primary childcare givers. MOB and FOB reported that both sets of their parents are supplemental caregivers. Transportation: MOB and FOB denied any issues with transportation as they both drive Programs/agencies involved: MOB an FOB are not connected with any agencies. MOB was connected with [facility] in the past when MOB stopped . MOB declined [facility] referral. Children Services/Legal Issues: MOB and FOB declined any history with children services or legal issues. Behavioral Health Issues: Mental Health History: JELANI has been diagnosed with depression, anxiety, and OCD. MOB reported to have experienced baby blues during short time period after delivery with previous of Marci. MOB does not attend counseling but has been prescribed Celexa as treatment for diagnoses. MOB denies any history or current suicidal ideations. Substance Use History: MOB denies any history of substance use. Family History: MOB did not identify any family history of concern. Drug Screens: MOB tested negative at PNC visit on 08/09/18. Family/Social Stressors: MOB and FOB spoke about history of marital counseling and identified as previous stressor but have since been working on positive communication. Support Systems: MOB and FOB identified their methodist, friends, and entire family, specifically parents on both sides, to be supports. ASSESSMENT: MOB and FOB were in room with baby Anh. FOB was doing skin to skin with Anh. FOB and MOB answered all questions appropriately. MOB and FOB provided accurate precautionary information for shaken baby syndrome and safe sleeping. PPD signs and symptoms reviewed with MOB and FOB with their understanding. FOB left room so MOB could speak privately. MOB reported that first was more anxiety provoking as MOB experienced pre eclampsia for the entire duration of the . MOB spoke about diagnoses to be controlled and not interfering with function. MOB has been prescribed Celexa as treatment and reports to be doing well. MOB does not attend counseling but did disclose that would attend counseling if necessary. MOB spoke about baby blues to be a lot of crying for unknown reasons and that FOB was supportive. MOB reported that baby blues passed shortly after returning home and finding a routine. MOB and FOB both caring and handling for the baby very well. PLAN: MOB to home with baby. [facility] resource packet provided. WIC/HMG/PPD packet provided. No other services indicated or requested at this time. -Rissa Silva, HOOP MAKER HELPER MACHINE Student [employer] [facility].
[2019-03-06 12:28] VITALS: BP 138/89; PULSE 75; RESP 18; TEMP 36.4; O2SAT 98
== END 2019-03-06 12:35 | disposition home or self-care (01) | DRG 540 ==
PROVIDERS: Admitting Provider Obstetrics & Gynecology; Family Provider Family Medicine; PCP Family Medicine; Referring Provider Obstetrics & Gynecology; Visit Provider Obstetrics & Gynecology
PROC: 10D00Z1 Extraction of Products of Conception, Low, Open Approach (ICD-10-PCS; CPT 59514; principal; 2019-03-04 11:45)
DX: O14.04 Mild to moderate pre-eclampsia, complicating childbirth (principal); O34.219 Maternal care for unspecified type scar from previous cesarean delivery; Z30.2 Encounter for sterilization; M06.9 Rheumatoid arthritis, unspecified; O99.344 Other mental disorders complicating childbirth; F42.9 Obsessive-compulsive disorder, unspecified; F32.9 Major depressive disorder, single episode, unspecified; Z79.82 Long term (current) use of aspirin; Z79.899 Other long term (current) drug therapy; Z86.32 Personal history of gestational diabetes; Z3A.37 37 weeks gestation of pregnancy; Z37.0 Single live birth
CPT/HCPCS: 82565; 82570; 84156; 84450; 84460; 84550; 85025; 85027; 85610; 85730; 86850; 86900; 88302; 99218; J7120; G0378; J2405

== ENCOUNTER → 2020-04-01 20:40 | Outpatient (CLI) | payer MEDICAID, SELFPAY ==
[2019-03-04 10:11] VITALS: BMI 35.4
== END ==
PROVIDERS: PCP Family Medicine; Referring Provider Nurse Practitioner Primary Care; Visit Provider Nurse Practitioner Primary Care
DX: G47.10 Hypersomnia, unspecified (principal); R06.83 Snoring
CPT/HCPCS: 95810

== ENCOUNTER → 2020-04-13 20:00 | Outpatient (CLI) | payer MEDICAID, SELFPAY ==
[2019-03-04 10:11] VITALS: BMI 35.4
== END ==
PROVIDERS: PCP Family Medicine; Visit Provider Nurse Practitioner Primary Care
DX: G47.33 Obstructive sleep apnea (adult) (pediatric) (principal)
CPT/HCPCS: 95811

== ENCOUNTER → 2020-04-26 12:42 | Outpatient (CLI) | payer MEDICAID, SELFPAY ==
[2019-03-04 10:11] VITALS: BMI 35.4
== END ==
PROVIDERS: PCP Family Medicine; Referring Provider Nurse Practitioner Primary Care; Visit Provider Nurse Practitioner Primary Care
DX: Z00.00 Encounter for general adult medical examination without abnormal findings (principal)

== ENCOUNTER → 2024-08-18 | Outpatient (CLI) | payer MEDICAID, SELFPAY | END | disposition home or self-care (01) | LOC: PSN 12:52 | PROVIDERS: PCP Family Medicine; Referring Provider Nurse Practitioner Primary Care; Visit Provider Nurse Practitioner Primary Care | DX: J40 Bronchitis, not specified as acute or chronic (principal) | CPT/HCPCS: 94010 ==

== ENCOUNTER → 2025-01-06 | Outpatient (CLI) | payer MEDICAID, SELFPAY ==
[2025-01-06 11:32] LABS: Absolute Lymphocyte Count 2.65 X10^3/uL (0.83-4.51); Absolute Neutrophil Count 6.6 X10^3/uL (2.0-7.7); Basophil# 0.04 X10^3/uL; Basophil% 0.4 % (0-1); Eosinophil# 0.79 X10^3/uL; Eosinophils% 7.2 % (0-5); Hematocrit 39.7 % (37-47); Hemoglobin 13.5 g/dL (12.0-15.0); Lymphocyte # 2.65 X10^3/ul (0.83-4.51); Lymphocyte % 24.2 % (19-41); Mean Corpuscular Hgb 30.5 pg (27.0-32.0); Mean Corpuscular Volume 89.8 fL (81-99); Mean Platelet Vol. 10.1 fl (6.2-12.0); Monocyte# 0.83 X10^3/uL; Monocyte% 7.6 % (0-10); NRBC Flagged by Analyzer 0 % (0-5); Neutrophil % 60.2 % (47-70); Platelet Count 308 K/mm3 (150-450); RBC Distribution Width CV 11.8 % (11.6-14.6); RBC Distribution Width SD 38.8 fl (35.1-43.9); Red Blood Count 4.42 M/mm3 (4.2-5.4)
[2025-01-06 23:58] LABS: ALB/GLOB Ratio 1.3 RATIO (0.9-2.4); AST(SGOT) 25 U/L (<=31); Alanine Aminotransfer ALT/SGPT 20 U/L (<=34); Albumin, Serum 4.6 g/dL (3.5-5.0); Alkaline Phosphatase 97 U/L (35-104); Anion Gap 13 (5-15); BUN 9 mg/dL (4-19); BUN/Creat Ratio 14.4 RATIO (10-20); CRP 5.91 mg/L (0.0-3.0); Calcium 9.5 mg/dL (7.6-11.0); Carbon Dioxide 18.1 mmol/L (22.0-29.0); Chloride 106 mmol/L (96-108); Creatinine, Serum 0.6 mg/dL (0.6-1.0); EST Glomerular Filtration Rate 118 (>60); Globulin 3.5 g/dL (2.2-4.2); Glucose 85 mg/dL (70-99); Potassium 4.2 mmol/L (3.3-5.1); Protein, Total 8.1 g/dL (5.9-8.4); Sodium Level 137 mmol/L (133-145); Total Bilirubin 0.23 mg/dL (0.00-1.30)
[2025-01-11 02:06] LABS: ACCA 40 units (0-90); ALCA 32 units (0-60); AMCA 62 units (0-100); Beef 0.11 kU/L (Class 0/I); Chocolate <0.10 kU/L (Class 0); Codfish <0.10 kU/L (Class 0); Corn 1.18 kU/L (Class II); Egg, Whole 2.13 kU/L (Class III); Endomysial Antibody IgA Positive (Negative); Immunoglobulin A 349 mg/dL (87-352); Immunoglobulin E 468 IU/mL (6-495); Immunoglobulin G 1481 mg/dL (586-1602); Immunoglobulin M 125 mg/dL (26-217); Milk (Cow) 1.11 kU/L (Class II); Mussels <0.10 kU/L (Class 0); Peanut 0.24 kU/L (Class 0/I); Pork <0.10 kU/L (Class 0); Salmon <0.10 kU/L (Class 0); Shrimp 0.17 kU/L (Class 0/I); Soybean 0.23 kU/L (Class 0/I); Tuna <0.10 kU/L (Class 0); Wheat 0.85 kU/L (Class II); gASCA 28 units (0-50); t-Transglutaminase IgA 42 U/mL (0-3)
== END | disposition home or self-care (01) ==
LOC: LAB 10:59
PROVIDERS: PCP Family Medicine
DX: K80.20 Calculus of gallbladder without cholecystitis without obstruction (principal); K29.70 Gastritis, unspecified, without bleeding
CPT/HCPCS: 36415; 80053; 82784; 82785; 83516; 84443; 85025; 86003; 86005; 86036; 86140; 86255; 86671

== ENCOUNTER → 2025-01-08 | Outpatient (CLI) | payer MEDICAID, SELFPAY ==
[2025-01-13 15:08] LABS: Calprotectin, Stool 137 ug/g (0-120)
[2025-01-15 12:08] LABS: Giardia Lamblia, Stool EIA Negative (Negative); Pancreatic Elastase, Fecal > 800 (>200)
== END | disposition home or self-care (01) ==
LOC: LABSPEC 10:58
PROVIDERS: PCP Family Medicine
DX: K58.9 Irritable bowel syndrome, unspecified (principal); K29.70 Gastritis, unspecified, without bleeding; K80.20 Calculus of gallbladder without cholecystitis without obstruction
CPT/HCPCS: 82653; 83993; 87329; 87493; 87506

== ENCOUNTER → 2025-02-09 | Outpatient (CLI) | payer MEDICAID, SELFPAY ==
--- NOTE | 2025-02-09 10:19 | NM_ITS ---
PROCEDURE: GASTRIC EMPTYING STUDY 02/09/2025 REASON FOR EXAM: EARLY SATIETY COMPARISON: None. TECHNIQUE: The patient ingested a standard meal of oatmeal and water. Total time taken to ingest the meal was minutes. There was no vomiting postprandially. Anterior and posterior planar images of the upper abdomen were obtained for 1 minute immediately following the meal at 1h,. Regions of interest were drawn, and a geometric mean was used to calculate a [id number]. Medications taken in the past 24 hours that may affect gastric emptying: None RADIOPHARMACEUTICAL: 1.1 mCi of technetium labeled sulfur colloid. FINDINGS: Percent activity remaining in stomach: 1 hour 64 % (normal 37-90%) NM/Gastric Emptying Study IMPRESSION: Normal gastric emptying examination. Reading Location: [id number]
== END | disposition home or self-care (01) ==
LOC: NM 10:17
PROVIDERS: PCP Family Medicine
DX: K29.70 Gastritis, unspecified, without bleeding (principal); K80.20 Calculus of gallbladder without cholecystitis without obstruction
CPT/HCPCS: 78264; A9541

== ENCOUNTER 2025-03-17 11:57 | Day surgery (SDC) | payer MEDICAID, SELFPAY ==
[2025-03-17] VITALS (8 sets, daily range): BP systolic 98–107; BP diastolic 61–68; PULSE 74–98; RESP 16–18; TEMP 36.4–37.1; O2SAT 96–98; BMI 34.2
[2025-03-17] MEDS: Lactated Ringers 1,000 ML 15 ML IV (12:24)
--- NOTE | 2025-03-17 13:00 | EGD_PTH ---
PATIENT: AMRITA MICHAUD LOC: EN U#:[id number] AGE/SX: 39/F ROOM: RE03/17/[address]: Dr. Dwight Beasley DO : 1985 BED: DIS: 03/17/2025 SPEC #: [id number] RECD: 03/18/25 09:39 STATUS: VERA REQ #: [id number] UBALDO: 03/17/25 13:[address]: Dwight Beasley DEPT: SURGICAL PATHOLOGY RECD BY: Rodríguez Gibson ENTERED: 03/18/25 10:47 SP TYPE: EGD BIOPSY ANSON DR: Dr. Tao Patel MD Tissues: A - Duodenum, NOS Procedures: Surgery Specimen Level IV HEADER OPERATION: EGD, pill cam placement, biopsy PRE-OP DIAGNOSIS: Celiac disease, gastritis TISSUE SUBMITTED: A- Duodenum biopsy MICROSCOPIC DIAGNOSIS A. Small bowel, duodenum, biopsy: * Small bowel mucosa with villous atrophy (See note) Note: The histologic findings are etiologically nonspecific and can be seen in a setting of celiac disease (gluten sensitive enteropathy), inflammatory bowel disease (favor Crohn disease), tropical sprue, medication injury (Olmesartan, for example), bacterial overgrowth, stasis related changes, or infection, among others. If celiac disease is a clinical concern, correlation with celiac disease specific antibodies and genetic permissiveness (HLA-DQ2 and/or HLA-DQ8) is recommended, if not already performed. MICROSCOPIC DESCRIPTION Slides are reviewed. GROSS DESCRIPTION A. Received in formalin in a container labeled with the patient's name, date of , and duodenum biopsy is a 0.4 x 0.4 x 0.3 cm fragment of carr-pink mucosal tissue. Submitted in toto in A1. [facility] 03-18-2025 CPT:30383
--- NOTE | 2025-03-17 13:06 | PRE.ANES_ITS ---
ASA Classification* ASA Classification ASA Classification: 2 Assessment & Plan Anesthesia* Anesthesia Assessment Anesthesia Assessment: Discussed sedation and/or anesthesia options, risks, benefits, and alternatives with patient/parents/legal guardian/POA. Questions invited. The patient/parents/legal guardian/POA seems to understand and agrees to proceed with anesthesia plan. Reviewed the physical assessment, medical history, allergy history and patient home medications list prior to surgery/procedure/anesthetic and documented any changes. Performed airway and anesthesia risk assessments. Anesthesia Type Anesthesia Type: MAC History Source History Obtained from:: Patient and Chart Anesthesia Focused Assessment* Temperature: 98.1 F Pulse Rate: 75 Blood Pressure: 101/63 Respiratory Rate: 18 Pulse Ox: 98 Oxygen Delivery Method: Room Air Airway Assessment Mouth opens: >3 cm Mallampati Score: II Teeth Condition: Intact Neck Range of motion (ROM): Full ROM Focused Labs Anesthesia Preop lab: CBC WBC 11.0 K/mm3 (4.4-11.0) 01/06/25 11:03 01/06/25 RBC 4.42 M/mm3 (4.2-5.4) 01/06/25 11:03 01/06/25 Hgb 13.5 g/dL (12.0-15.0) 01/06/25 11:03 01/06/25 Hct 39.7 % (37-47) 01/06/25 11:03 01/06/25 Plt Count 308 K/mm3 (150-450) 01/06/25 11:03 01/06/25 CHEMISTRY Potassium 4.2 mmol/L (3.3-5.1) 01/06/25 11:03 01/06/25 Sodium 137 mmol/L (133-145) 01/06/25 11:03 01/06/25 BUN 9 mg/dL (4-19) 01/06/25 11:03 01/06/25 Creatinine 0.6 mg/dL (0.6-1.0) 01/06/25 11:03 01/06/25 Glucose 85 mg/dL (70-99) 01/06/25 11:03 01/06/25 POC Glucose 78 mg/dL (70-110) 12/11/13 18:25 12/11/13 TSH 3.400 uIU/mL (0.300-4.200) 01/06/25 11:03 02/04/05 COAG PT 13.4 SECONDS (11.7-14.9) 03/04/19 17:15 Pre-Assessment Diagnosis/Proposed Procedure Planned Operative Procedure(s): EGD Anesthesia History 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 When Was Last Pacemaker Check QUESTION #4 FULL TEXT: You/Your Family Experience fever (hyperthermia) with Anesthesia Last Oral Intake Last Oral intake: Last Oral Intake NPO since 07:00 03/17/25 12:14 Meds taken in AM with sips of No 03/17/25 12:14 water? Meds patient instructed to take am of surgery Any additional information?: Yes NPO since: 07:00 (water at 7am) PONV PONV - volunteer recruitment coordinator: PONV - volunteer recruitment coordinator Female Yes 03/13/25 13:01 HX of Motion Sickness Yes 03/13/25 13:01 HX of N/V After Surgery No 03/13/25 13:01 Non-Smoker Yes 03/13/25 13:01 Duration of Surgery greater No 03/13/25 13:01 than 60 minutes Number of Risk Factors 3 03/13/25 13:01 PONV Score Moderate Risk 03/13/25 13:01 Height & Weight Height & Weight: Anesthesia: Height & Weight Height 5 ft 2 in 03/17/25 12:14 Weight: 85 kg 03/17/25 12:14 Body Mass Index (BMI) 34.2 03/17/25 12:14 Respiratory Assessment Respiratory Assessment - volunteer recruitment coordinator: Respiratory Tract Infection Hx - volunteer recruitment coordinator Hx Respiratory Tract Infection No 03/13/25 13:01 STOP Sleep Apnea STOP Sleep Apnea - volunteer recruitment coordinator: STOP Sleep Apnea - volunteer recruitment coordinator Hx Hypertension No 03/13/25 13:01 Hx Sleep Apnea Yes 03/13/25 13:01 CPAP Yes 03/13/25 13:01 BIPAP No 03/13/25 13:01 Do you snore loudly (louder than talking or can be heard Do you often feel tired/ fatigued/ sleepy during daytime? Has anyone observed you stop breathing during sleep? STOP Results Positive 03/13/25 13:01 QUESTION #5 FULL TEXT : Do you snore loudly (louder than talking or can be heard through closed doors)? 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 Specify any problems Hx of Preganancy in last 3 No 03/13/25 13:01 Months Nurse Filling Out Transfusion VLEHMAN 03/13/25 13:01 & Questions: Date: 03/13/25 03/13/25 13:01 Time: 13:02 03/13/25 13:01 Patient unable to answer at this time (ie. confused, unrespo /Reproduction History /Reproductive History - volunteer recruitment coordinator: /Reproductive Hx- volunteer recruitment coordinator Hx Now No 03/13/25 13:01 Gestational Age (in weeks): EDC: Hx Hx Para Hx Section SAB No 03/13/25 13:01 Active Medications Active Medications: Current Medications Generic Name Dose Route Start Last Admin Trade Name Freq PRN Reason Stop Dose Admin Lactated Ringer's 1,000 mls @ 15 mls/hr 03/17/25 12:15 03/17/25 12:24 IV 15 mls/hr .Q48H ZOHAIB Administration PFSH Medical History (Updated 03/17/25 @ 13:[address] Glenn Bales MD) Preeclampsia Wears glasses Bipolar disorder Anxiety Low iron Asthma Sleep apnea Kikuchi disease Iron deficiency anemia Stomach burning Diarrhea Nausea Depression with anxiety OCD (obsessive compulsive disorder) Rheumatoid arthritis History of gestational diabetes mellitus (GDM) AVM (arteriovenous malformation) Home Medications ?Medication ?Instructions ?Recorded ?Last Taken ?Type ferrous gluconate 324 mg (37.5 mg 324 mg PO BID vitami n 02/18/19 03/03/19 18:00 History iron) tablet brexpiprazole 1 mg tablet (Rexulti) 2 mg PO QDAY 01/05 Unknown History propranolol 20 mg tablet 20 mg PO BID PRN anxiety Unknown History sertraline 100 mg tablet 100 mg PO QDAY 01/05/25 Unkn own History ondansetron 4 mg disintegrating 4 mg PO Q6H PRN nausea and 01/06/25 Unknown Rx tablet vomiting #20 tabs albuterol sulfate 90 mcg/actuation 1 puff inhalation 4 X/DAY PRN PRN 03/13/25 Unknown History aerosol inhaler bronchospasm omeprazole 40 mg capsule,delayed 40 mg PO DAILY Unknown History release Allergy/AdvReac Type Severity Reaction Status Date / Time propoxyphene napsylate (From Allergy Severe Other Verified 03/17/25 12:13 Darvocet-N 100) ferrous sulfate Allergy Intermediate Other Verified 03/17/25 12:13 cefuroxime axetil (From Allergy Hives Verified 03/17/25 12:13 Ceftin) codeine Allergy Hives Verified 03/17/25 12:13 latex Allergy Rash Verified 03/17/25 12:13 Sulfa (Sulfonamide AdvReac Anaphylaxis Verified 03/17/25 12:13 Antibiotics) Surgical History (Updated 03/13/25 @ 13:00 by Ariana Henriquez) History of tonsillectomy History of appendectomy History of neck surgery History of delivery Social History Smoking Status: Never smoker Review of Systems (Anesthesia) ROS Narrative System reviewed and no additional complaints, except as documented.
--- NOTE | 2025-03-17 13:39 | PCM.HP.STD ---
HPI - General General Date of Admission: 03/17/25 Date of Service: 03/17/25 HPI Narrative Chief Complaint: nausea, vomiting, abdominal pain and loose stools AMRITA MICHAUD, is a 39 F who presents for complaints of stomach cramps, nausea, vomiting, and abdominal pain for 2 months. She reports gestational DM but not DM types I or II, RA, iron deficiency anemia, and Kikuchi-chary disease. She denies difficulty chewing and swallowing, heartburn, reflux, constipation, hematochezia, and melena. PCP obtained a KUB to rule out SBO. She reports 3 to 4 loose to watery stools daily, the lower abdominal cramping is only partially relieved by the BM. She reports weak appetite with early satiety after just a few bites of bland foods. Denies hematemesis. [facility] Medical History Preeclampsia Wears glasses Bipolar disorder Anxiety Low iron Asthma Sleep apnea Kikuchi disease Iron deficiency anemia Stomach burning Diarrhea Nausea Depression with anxiety OCD (obsessive compulsive disorder) Rheumatoid arthritis History of gestational diabetes mellitus (GDM) AVM (arteriovenous malformation) Home Medications ?Medication ?Instructions ?Recorded ?Last Taken ?Type ferrous gluconate 324 mg (37.5 mg 324 mg PO BID vitamin 02/18/19 03/03/19 18:00 History iron) tablet brexpiprazole 1 mg tablet (Rexulti) 2 mg PO QDAY 01/05/25 Unknown History propranolol 20 mg tablet 20 mg PO BID PRN anxiety 01/05/25 Unknown History sertraline 100 mg tablet 100 mg PO QDAY 01/05/25 Unknown History ondansetron 4 mg disintegrating 4 mg PO Q6H PRN nausea and 01/06/25 Unknown Rx tablet vomiting #20 tabs albuterol sulfate 90 mcg/actuation 1 puff inhalation 4X/DAY PRN PRN 03/13/25 Unknown History aerosol inhaler bronchospasm omeprazole 40 mg capsule,delayed 40 mg PO DAILY 03/13/25 Unknown History release Allergy/AdvReac Type Severity Reaction Status Date / Time propoxyphene napsylate (From Allergy Severe Other Verified 03/17/25 12:13 Darvocet-N 100) ferrous sulfate Allergy Intermediate Other Verified 03/17/25 12:13 cefuroxime axetil (From Allergy Hives Verified 03/17/25 12:13 Ceftin) codeine Allergy Hives Verified 03/17/25 12:13 latex Allergy Rash Verified 03/17/25 12:13 Sulfa (Sulfonamide AdvReac Anaphylaxis Verified 03/17/25 12:13 Antibiotics) Surgical History History of tonsillectomy History of appendectomy History of neck surgery History of delivery Social History Smoking Status: Never smoker ROS Constitutional Constitutional: Denies fatigue, fever(s), poor appetite, weight gain or weight loss Gastrointestinal Gastrointestinal: Denies belching, bloating, change in bowel habits, change in stool character, chewing difficulty, coffee ground emesis, constipation, cramping, diarrhea, dyspepsia, dysphagia, early satiety, excessive flatus, fecal incontinence, heartburn, hematemesis, hematochezia, hemorrhoids, loose stools, melena, nausea, odynophagia, rectal bleeding, tenesmus, vomiting or weight changes Vital Signs Vital Signs Vital Signs: 03/17/25 12:14 03/17/25 12:14 03/17/25 13:15 Temperature 98.1 F 98.1 F Temperature Source Temporal Pulse Rate 75 75 Respiratory Rate 18 18 Respiratory Pattern Normal Blood Pressure 101/63 101/63 Blood Pressure Mean 75 Blood Pressure Source Monitor Blood Pressure Position Semi-Fowlers Blood Pressure Location Right Arm Pulse Ox 98 98 Oxygen Delivery Method Room Air Room Air Weight Weight: 187 lb 6.287 oz Body Mass Index (BMI) 34.2 Physical Exam Const alert, oriented x3, no apparent distress and healthy appearing General Appearance: cooperative GI normal to inspection, nondistended, normoactive bowel sounds, soft to palpation, non-tender and non-distended Percussion: normal to percussion Rectal Exam: deferred Assessment & Plan Assessment/Plan (1) Celiac disease: PLAN: Assessment and Plan Assessment and Plan (1) Gastritis: Status: Acute Qualifiers: Gastritis type: unspecified gastritis Chronicity: acute Gastritis bleeding: presence of bleeding unspecified Qualified Code(s): K29.00 - Acute gastritis without bleeding Orders: Orders Giardia Lamblia, Stool EIA Today K29.70 - Gastritis, unspecified, without bleeding, K80.20 - Calculus of gallbladder without cholecystitis without obstruction Calprotectin, Stool Today K29.70 - Gastritis, unspecified, without bleeding, K80.20 - Calculus of gallbladder without cholecystitis without obstruction CBC W/Diff, Automated Today K29.70 - Gastritis, unspecified, without bleeding, K80.20 - Calculus of gallbladder without cholecystitis without obstruction CDIFF (PCR) Today K29.70 - Gastritis, unspecified, without bleeding, K80.20 - Calculus of gallbladder without cholecystitis without obstruction Celiac Disease Profile Today K29.70 - Gastritis, unspecified, without bleeding, K80.20 - Calculus of gallbladder without cholecystitis without obstruction Pancreatic Elastase, Fecal Today K29.70 - Gastritis, unspecified, without bleeding, K80.20 - Calculus of gallbladder without cholecystitis without obstruction IBD Expanded Profile Today K29.70 - Gastritis, unspecified, without bleeding, K80.20 - Calculus of gallbladder without cholecystitis without obstruction Immunoglobulins G/A/M/E Today K29.70 - Gastritis, unspecified, without bleeding, K80.20 - Calculus of gallbladder without cholecystitis without obstruction ENTERIC PATHOGEN PANEL STOOL Today K29.70 - Gastritis, unspecified, without bleeding, K58.9 - Irritable bowel syndrome, unspecified, K80.20 - Calculus of gallbladder without cholecystitis without obstruction Allergen, Food Profile 14 Today K29.70 - Gastritis, unspecified, without bleeding, K80.20 - Calculus of gallbladder without cholecystitis without obstruction Gastric Emptying Study Today K29.70 - Gastritis, unspecified, without bleeding, K80.20 - Calculus of gallbladder without cholecystitis without obstruction Gallbladder Today K29.70 - Gastritis, unspecified, without bleeding, K80.20 - Calculus of gallbladder without cholecystitis without obstruction Medications: New ondansetron 4 mg PO Q6H PRN 20 tabs 1RF nausea and vomiting omeprazole 40 mg PO BID 60 caps 2RF Plan AMRITA MICHAUD, is a 39 F who presents to the office today for establishment with [facility] for complaints of stomach cramps, nausea, vomiting, and abdominal pain for 2 months. She reports gestational DM but not DM types I or II, RA, iron deficiency anemia, and Kikuchi-chary disease. Differential diagnoses include: GERD, delayed gastric motility, EPI, IBD, less likely celiac. Discussed care plan with her. She is agreeable to get blood drawn here at [facility] but desires other testing to be done at [facility] in [place]. blood for inflammatory, IBD markers stool for enteric, inflammatory markers GET for emptying time abdominal US to investigate calcifications seen on KUB suggestive of cholelithiasis increase omeprazole to twice daily ondansetron for nausea PRN office FU to discuss test results
--- NOTE | 2025-03-17 14:23 | OP.EGD_ITS ---
Patient Name: Sharon Ross Procedure Date: 03/17/2025 1:47 PM Date of : 1985 Age: 39 Procedure: Upper GI endoscopy Indications: Epigastric abdominal pain, Iron deficiency anemia, Refractory celiac disease Providers: Dwight Beasley DO Medicines: Monitored Anesthesia Care Patient Profile: This is a 39 year old female. Refer to note in patient chart for documentation of history and physical. Patient has symptoms of chronic epigastric abdominal pain. Her most recent EGD for biopsy. Complications: No immediate complications. Procedure: Pre-Anesthesia Assessment: - Prior to the procedure, a History and Physical was performed, and patient medications and allergies were reviewed. The patient is competent. The risks and benefits of the procedure and the sedation options and risks were discussed with the patient. All questions were answered and informed consent was obtained. Patient identification and proposed procedure were verified by the physician in the pre-procedure area. Mental Status Examination: alert and oriented. Airway Examination: normal oropharyngeal airway and neck mobility. Respiratory Examination: clear to auscultation. CV Examination: normal. Prophylactic Antibiotics: The patient does not require prophylactic antibiotics. Prior Anticoagulants: The patient has taken no anticoagulant or antiplatelet agents except for NSAID medication. ASA Grade Assessment: II - A patient with mild systemic disease. After reviewing the risks and benefits, the patient was deemed in satisfactory condition to undergo the procedure. The anesthesia plan was to use monitored anesthesia care (MAC). Immediately prior to administration of medications, the patient was re-assessed for adequacy to receive sedatives. The heart rate, respiratory rate, oxygen saturations, blood pressure, adequacy of pulmonary ventilation, and response to care were monitored throughout the procedure. The physical status of the patient was re-assessed after the procedure. After obtaining informed consent, the endoscope was passed under direct vision. Throughout the procedure, the patient's blood pressure, pulse, and oxygen saturations were monitored continuously. The gastroscope was introduced through the mouth, and advanced to the fourth part of the duodenum. Small bowel enteroscopy was deemed necessary. The upper GI endoscopy was accomplished without difficulty. The patient tolerated the procedure well. Scope In: 2:08:01 PM Scope Out: 2:17:30 PM Total Procedure Duration Time 0 hours 9 minutes 29 seconds Findings: The examined esophagus was normal. No gross lesions were noted in the entire examined stomach. Decreased folds were found in the entire duodenum and scalloped mucosa was found in the entire duodenum. Biopsies for histology were taken with a cold forceps for evaluation of celiac disease. Verification of patient identification for the specimen was done. Using the endoscope, the video capsule enteroscope was advanced into the fourth portion of the duodenum. The video capsule was positioned 60 cm from the incisors. Impression: - Normal esophagus. - No gross lesions in the entire stomach. - Duodenal mucosal changes seen, diagnostic of celiac disease. Biopsied. - Successful completion of the Video Capsule Enteroscope placement. Recommendation: - Discharge patient to home. - Resume previous diet. - Continue present medications. - Await pathology results. Procedure Code(s): --- Professional --- 15662, Small intestinal endoscopy, enteroscopy beyond second portion of duodenum, not including ileum; with biopsy, single or multiple CPT copyright 2021 [employer]. All rights reserved. The codes documented in this report are preliminary and upon atmospheric technician review may be revised to meet current compliance requirements. Dwight Beasley DO 03/17/2025 2:23:01 PM This report has been signed electronically. Number of Addenda: 0 Note Initiated On: 03/17/2025 1:47 PM
--- NOTE | 2025-03-17 14:23 | OP.CCLET_ITS ---
03/17/2025 Tao Patel Re : Upper GI endoscopy procedure for Sharon Ross Clarir Jorge This procedure was performed on Monday, March 17, 2025. My impressions and recommendations are as follows: Impressions : - Normal esophagus. - No gross lesions in the entire stomach. - Duodenal mucosal changes seen, diagnostic of celiac disease. Biopsied. - Successful completion of the Video Capsule Enteroscope placement. Recommendations : - Discharge patient to home. - Resume previous diet. - Continue present medications. - Await pathology results. My findings are described in the full procedure note, which is enclosed. If I can be of further assistance, please feel free to contact me at . Sincerely, Dwight Beasley, 03/17/2025 2:23:01 PM This report has been signed electronically.
--- NOTE | 2025-03-17 14:31 | PCM.POST.ANE ---
Anesthesia: Postop Eval I Current Vital Signs Temperature: 98.7 F Pulse Rate: 98 Blood Pressure: 107/67 Respiratory Rate: 16 Pulse Ox: 97 Oxygen Delivery Method: Room Air Assessment Airway patent: Yes Spontaneous unlabored respirations: Yes Mental status: Asleep nausea: No Vomiting: No Anesthesia Complication: No Fluid Hydration Crystalloid volume administer (ml): 400 Total IV fluid infused: 400 Progress Note Anesthesia document: Postop Eval 1 completed: Yes
--- NOTE | 2025-03-17 15:23 | PCM.POSTANE2 ---
Anesthesia Postop Eval I Sum Postop Eval Completion status Anesthesia document: Postop Eval 1 completed: Yes Anesthesia Postop Eval I Summary Anesthesia Postop Eval I Summary: Anesthesia Postop Eval I: Assessment Summary Airway patent Yes 03/17/25 14:32 [email or web address] Spontaneous unlabored Yes 03/17/25 14:32 [email or web address] respirations Mental status Asleep 03/17/25 14:32 [email or web address] nausea No 03/17/25 14:32 [email or web address] Vomiting No 03/17/25 14:32 [email or web address] Anesthesia Postop Eval I: Fluid Summary Crystalloid volume administer 400 03/17/25 14:32 [email or web address] (ml) Colloids volume administered ( ml) Blood Product volume administered (ml) Total IV fluid infused 400 03/17/25 14:32 [email or web address] Anesthesia Postop Eval I: Summary Notes Anesthesia Complication No 03/17/25 14:32 [email or web address] Anesthesia Complication Comment: Post-operative progress note Anesthesia: Postop Eval II Evaluation Mental status: Awake and Calm Pain Level: 0 nausea: No Vomiting: No Complications Anesthesia Complication: No
== END 2025-03-17 14:57 | disposition home or self-care (01) ==
LOC: EN 11:58 → AC 11:59
PROVIDERS: PCP Family Medicine; Referring Provider Family Medicine; Visit Provider Internal Medicine Gastroenterology
PROC: 0DJ08ZZ Inspection of Upper Intestinal Tract, Via Natural or Artificial Opening Endoscopic (ICD-10-PCS; CPT 43235; principal; 2025-03-17 12:55)
DX: K90.0 Celiac disease (principal); M06.9 Rheumatoid arthritis, unspecified; F31.9 Bipolar disorder, unspecified; K29.00 Acute gastritis without bleeding; D50.9 Iron deficiency anemia, unspecified; Z79.899 Other long term (current) drug therapy
CPT/HCPCS: 44361; 88305; C1889; J2405